=== PATIENT | female | born 1995 | race Two or more races ===

== ENCOUNTER 2018-01-09 16:54 | Emergency (ER) | payer MEDICAID ==
[~2018-01-09] VITALS: Ht 170.2 cm; Wt 72.6 kg
[2018-01-09 17:06] VITALS: BP 125/73
[2018-01-09] MEDS ORDERED: TETRACAINE HCL 0.5% OPTH(EYE) SOLN 4ML LEFTEYE ONE (17:45)
[2018-01-09] MEDS ORDERED: FLUORESCEIN SOD 1 MG TEST STRIP LEFTEYE ONE (17:45)
== END 2018-01-09 18:29 | disposition home or self-care (01) ==
LOC: ER 16:58
DX: S05.02XA Injury of conjunctiva and corneal abrasion without foreign body, left eye, initial encounter (principal); X58.XXXA Exposure to other specified factors, initial encounter; Y93.89 Activity, other specified; Y92.89 Other specified places as the place of occurrence of the external cause; Y99.8 Other external cause status; R10.32 Left lower quadrant pain
CPT/HCPCS: 65220; 81025

== ENCOUNTER 2023-12-30 08:38 | Emergency (ER) | payer MEDICAID ==
[~2023-12-30] VITALS: Ht 172.7 cm; Wt 78.7 kg
[2023-12-30 09:30] VITALS: BP 109/71; PULSE 110; RESP 16; TEMP 100.3; O2SAT 98
[2023-12-30] MEDS ORDERED: LIDO2SOL26 MT (10:15)
[2023-12-30] MEDS ORDERED: CEPH500C PO (10:15)
[2023-12-30] MEDS: methylPREDNISolone SOD SUCC 125 MG/2 ML VL IM ONE (10:16)
[2023-12-30] MEDS: cefTRIAXone SOD 1,000 MG VL IM ONE (10:17)
== END 2023-12-30 10:32 | disposition home or self-care (01) ==
LOC: ER 08:38
DX: J03.90 Acute tonsillitis, unspecified (principal)
CPT/HCPCS: 96372; 99284; J0696; J2930